=== PATIENT | female | born 1960 | race Caucasian/White ===

== ENCOUNTER → 2016-12-30 | Outpatient (CLI) | payer BC, OTHER ==
[~2016-12-30] MED LIST: EFFEXOR 3737.5 MG/TA PO; MASON NATURAL2000 IU PO; NORCO 325 MG-51 TAB PO
== END ==
LOC: COL.RAD 08:49
DX: C50.412 Malignant neoplasm of upper-outer quadrant of left female breast (principal); D48.61 Neoplasm of uncertain behavior of right breast; Z90.12 Acquired absence of left breast and nipple
CPT/HCPCS: Q9967

== ENCOUNTER → 2016-12-30 | Outpatient (CLI) | payer BC, OTHER | LOC: COL.RAD 08:48 | DX: C50.412 Malignant neoplasm of upper-outer quadrant of left female breast (principal); Z90.12 Acquired absence of left breast and nipple | CPT/HCPCS: A9503; Q9967 ==